=== PATIENT | male | born 1970 | race Caucasian/White ===

== ENCOUNTER 2016-12-30 17:00 | Emergency (ER) | payer BC ==
--- NOTE | 2016-12-30 17:44 | EDM.PDOC ---
ED HPI GENERAL MEDICAL PROBLEM - General Chief Complaint: Back Pain or Injury Stated Complaint: PAIN/BACK /DRAINING INCISION Time Seen by Provider: 12/30/16 17:27 - History of Present Illness INITIAL COMMENTS - FREE TEXT/NARRATIVE: HISTORY AND PHYSICAL: History of present illness: Patient 46-year-old male with recent lumbar surgery presents with a concern of medical screening exam and wound check patient states he's had some postoperative pain he denies any incontinence or retention of bowel or bladder any new numbness or weakness no fever chills or other complaints patient has scheduled appointment on Sunday Review of systems: As per history of present illness and below otherwise all systems reviewed and negative. Past medical history: As per history of present illness and as reviewed below otherwise noncontributory. Surgical history: As per history of present illness and as reviewed below otherwise noncontributory. Social history: No reported history of drug or alcohol abuse. Family history: As per history of present illness and as reviewed below otherwise noncontributory. Physical exam: HEENT: Atraumatic, normocephalic, pupils reactive, negative for conjunctival pallor or scleral icterus, mucous membranes moist, throat clear, neck supple, nontender, trachea midline. Lungs: Clear to auscultation, breath sounds equal bilaterally, chest nontender. Heart: S1S2, regular, negative for clicks, rubs, or JVD. Abdomen: Soft, nondistended, nontender. Negative for masses or hepatosplenomegaly. Negative for costovertebral tenderness. Pelvis: Stable nontender. Genitourinary: Deferred. Rectal: Deferred. Extremities: Atraumatic, negative for cords or calf pain. Neurovascular unremarkable. Neuro: Awake, alert, oriented. Cranial nerves II through XII unremarkable. Cerebellum unremarkable. Motor and sensory unremarkable throughout. Exam nonfocal. Back: Patient has a wound that is healing well with no discharge no erythema no fluctuance no induration motor and sensory exam inferiorly are unremarkable Diagnostics: CBC CMP x-ray thoracic and lumbar spine Therapeutics: None Impression: #1 observation status post recent lumbar surgery #2 medical screening exam Definitive disposition and diagnosis as appropriate pending reevaluation and review of above. Lower Back Pain Score (Numeric/FACES): 10 - Related Data Allergies Allergy/AdvReac Type Severity Reaction Status Date / Time No Known Allergies Allergy Verified 12/30/16 17:28 Home Meds: Home Meds Acetaminophen/oxyCODONE [Percocet 325-5 MG] 5 mg PO DAILY 12/30/16 [History] Cyclobenzaprine [Flexeril] 5 mg PO DAILY PRN 12/30/16 [History] Gabapentin [Neurontin] 100 mg PO TID 12/30/16 [History] oxyCODONE HCl [oxyCODONE] 15 mg PO DAILY 12/30/16 [History] Past Medical History HEENT History: Reports: None Cardiovascular History: Reports: Hypertension Respiratory History: Reports: None Gastrointestinal History: Reports: None Genitourinary History: Reports: None Musculoskeletal History: Reports: None Neurological History: Reports: None Psychiatric History: Reports: None Endocrine/Metabolic History: Reports: None Hematologic History: Reports: None Immunologic History: Reports: None Oncologic (Cancer) History: Reports: None Dermatologic History: Reports: None - Past Surgical History Head Surgeries/Procedures: Reports: None HEENT Surgical History: Reports: Tonsillectomy Cardiovascular Surgical History: Reports: None Respiratory Surgical History: Reports: None GI Surgical History: Reports: None Male Surgical History: Reports: None Endocrine Surgical History: Reports: None Neurological Surgical History: Reports: None Musculoskeletal Surgical History: Reports: Other (See Below) Other Musculoskeletal Surgeries/Procedures:: back surgery Dermatological Surgical History: Reports: None Social & Family History - Family History Family Medical History: Noncontributory - Tobacco Use Smoking Status *Q: Never Smoker Years of Tobacco use: 20 - Caffeine Use Caffeine Use: Reports: Coffee - Recreational Drug Use Recreational Drug Use: No Drug Use in Last 12 Months: Yes Recreational Drug Type: Reports: Marijuana/Hashish Recreational Drug Use Frequency: Not Used In Over 1 Month ED ROS GENERAL - Review of Systems Review Of Systems: ROS reveals no pertinent complaints other than HPI. ED EXAM, GENERAL - Physical Exam Exam: See Below (See dictation) Course - Vital Signs Last Recorded V/S: Last Vital Signs Temp 36.6 C 12/30/16 17:30 Pulse 98 12/30/16 17:30 Resp 18 12/30/16 17:30 BP 125/75 12/30/16 17:30 Pulse Ox 97 12/30/16 17:30 - Orders/Labs/Meds Orders: Active Orders 24 hr Category Date Time Status Lumbar Spine 2 or 3V [CR] Stat Exams 12/30/16 17:40 Ordered Thoracic Spine 2V [CR] Stat Exams 12/30/16 17:40 Ordered CMP [COMPREHENSIVE METABOLIC PN,CMP] [CHEM] Stat Lab 12/30/16 17:46 Received Labs: Laboratory Tests 12/30/16 Range/Units 17:46 WBC 13.45 H (4.0-11.0) K/uL RBC 4.47 L (4.50-5.90) M/uL Hgb 13.3 (13.0-17.0) g/dL Hct 39.7 (38.0-50.0) % MCV 88.8 (80.0-98.0) fL MCH 29.8 (27.0-32.0) pg MCHC 33.5 (31.0-37.0) g/dL RDW Std Deviation 50.1 (28.0-62.0) fl RDW Coeff of Javier 16 H (11.0-15.0) % Plt Count 303 (150-400) K/uL MPV 9.00 (7.40-12.00) fL Neut % (Auto) 78.8 (48.0-80.0) % Lymph % (Auto) 11.3 L (16.0-40.0) % Bates % (Auto) 6.2 (0.0-15.0) % Eos % (Auto) 3.5 (0.0-7.0) % Baso % (Auto) 0.2 (0.0-1.5) % Neut # (Auto) 10.6 H (1.4-5.7) K/uL Lymph # (Auto) 1.5 (0.6-2.4) K/uL Bates # (Auto) 0.8 (0.0-0.8) K/uL Eos # (Auto) 0.5 (0.0-0.7) K/uL Baso # (Auto) 0.0 (0.0-0.1) K/uL Nucleated RBC % 0.0 /100WBC Nucleated RBCs # 0 K/uL Departure - Departure Time of Disposition: 18:23 Disposition: Home, Self-Care 01 Condition: Good Clinical Impression: Encounter for medical screening examination - Discharge Information Referrals: Shauna Smith DO [Primary Care Provider] - Forms: ED Department Discharge Additional Instructions: The following information is given to patients seen in the emergency department who are being discharged to home. This information is to outline your options for follow-up care. We provide all patients seen in our emergency department with a follow-up referral. The need for follow-up, as well as the timing and circumstances, are variable depending upon the specifics of your emergency department visit. If you don't have a primary care physician on staff, we will provide you with a referral. We always advise you to contact your personal physician following an emergency department visit to inform them of the circumstance of the visit and for follow-up with them and/or the need for any referrals to a consulting specialist. The emergency department will also refer you to a specialist when appropriate. This referral assures that you have the opportunity for followup care with a specialist. All of these measure are taken in an effort to provide you with optimal care, which includes your followup. Under all circumstances we always encourage you to contact your private physician who remains a resource for coordinating your care. When calling for followup care, please make the office aware that this follow-up is from your recent emergency room visit. If for any reason you are refused follow-up, please contact the [facility] emergency department at and asked to speak to the emergency department charge nurse. Keep scheduled appointment on Sunday as discussed continue current medications return as needed as discussed - My Orders Last 24 Hours: My Active Orders 12/30/16 17:40 Lumbar Spine 2 or 3V [CR] Stat Thoracic Spine 2V [CR] Stat 12/30/16 17:46 CMP [COMPREHENSIVE METABOLIC PN,CMP] [CHEM] Stat - Assessment/Plan Last 24 Hours: My Active Orders 12/30/16 17:40 Lumbar Spine 2 or 3V [CR] Stat Thoracic Spine 2V [CR] Stat 12/30/16 17:46 CMP [COMPREHENSIVE METABOLIC PN,CMP] [CHEM] Stat
[2016-12-30 18:22] LABS: CHLORIDE,CL 106 mmol/L (98-110); SODIUM,NA 139 mmol/L (136-146)
[2016-12-30 18:51] VITALS: BP 112/62
--- NOTE | 2017-01-01 14:00 | CR ---
EXAM DATE: 12/30/16 PATIENT'S AGE: 46 Patient: ESTEBAN CLEMENTS Facility: [place], [place] Site . Site : 1970 Study: XRay Spine Lumbar [id number]/28/2017 6:31:46 PM Ordering Physician: Peyton London Final Report: INDICATION: back pain TECHNIQUE: Lumbar spine 3 view COMPARISON: None FINDINGS: Bones: Fusion changes spanning the L4 through S1 levels with no evidence hardware complication. No fractures or significant bone lesions. Joints: Disc spaces and facets are unremarkable. Soft tissues: Hernia tackers in place. IMPRESSION: No acute abnormality of the lumbar spine or evidence of hardware complication. Dictated by Selvin Hatfield MD @ 12/30/2016 7:01:49 PM Dictated by: Selvin Hatfield MD @ 12/30/2016 19:02:02 (Electronic Signature) Report Signed by Proxy. ARMIN
--- NOTE | 2017-01-01 14:00 | CR ---
EXAM DATE: 12/30/16 PATIENT'S AGE: 46 Patient: ESTEBAN CLEMENTS Facility: [place], [place] Site . Site : 1970 Study: XRay Spine Thoracic [id number]/28/2017 6:31:21 PM Ordering Physician: Peyton London Final Report: INDICATION: back pain TECHNIQUE: Thoracic spine 3 view COMPARISON: None FINDINGS: Bones: No fractures or significant bone lesions. Joints: Degenerative changes with leftward curvature. Soft tissues: Unremarkable. IMPRESSION: No acute abnormality of the thoracic spine. Dictated by Selvin Hatfield MD @ 12/30/2016 6:59:25 PM Dictated by: Selvin Hatfield MD @ 12/30/2016 18:59:31 (Electronic Signature) Report Signed by Proxy. [facility]
== END 2016-12-30 18:54 | disposition home or self-care (01) ==
LOC: MW.ED 17:00
DX: Z47.89 Encounter for other orthopedic aftercare (principal); M54.5 Low back pain; Z79.899 Other long term (current) drug therapy
CPT/HCPCS: 36415; 72070; 72070-26; 72100; 72100-26; 80053; 85025; 99283; 99284